=== PATIENT | female | born 2000 | race Caucasian/White ===

== ENCOUNTER 2023-01-17 16:25 | Observation (INO) | payer SELFPAY ==
[2023-01-17 17:37] LABS: Amphetamine Screen, Urine Neg (NEGATIVE); Barbiturate Scree,Urine Neg (NEGATIVE); Benzodiazephine Screen, Urine Neg (NEGATIVE); Cannabinoid Screen, Urine Neg (NEGATIVE); Cocaine Screen, Urine Neg (NEGATIVE); Opiate Scree,Urine Neg (NEGATIVE); Phencyclidine Screen, Urine Neg (NEGATIVE)
[2023-01-17 18:10] LABS: Urine Bacteria FEW /hpf (None Seen); Urine Blood 1+ /uL (Negative); Urine Clarity HAZY (Clear); Urine Color Yellow (Yellow); Urine Mucus FEW (None Seen); Urine Protein, UAD 1+ (Negative); Urine Specific Gravity 1.029 (1.001-1.035); Urine Urobilinogen Normal (Negative); Urine WBC 12 /hpf (0 - 5)
[2023-01-17 18:41] LABS: Basophils # (auto) 0 10 ^3/uL (0-0.2); Basophils % (auto) 0.2 % (0.0-2.0); Eosinophils # (auto) 0.1 10 ^3/uL (0-0.8); Eosinophils % (auto) 0.5 % (0.0-7.0); Hematocrit 32.4 % (36.0-46.0); Hemoglobin 10.5 g/dL (12.2-16.2); Lymphocytes # (auto) 2.6 10 ^3/uL (0.4-5.4); Mean Corpuscular Hemoglobin 26.6 pg (28.0-32.0); Mean Corpuscular Hgb Conc. 32.4 g/dL (32.0-36.0); Monocytes # (auto) 0.9 10 ^3/uL (0-1.3); Monocytes % (auto) 7.1 % (0.0-12.0); Neutrophils # (auto) 8.9 10 ^3/uL (1.6-8.6); Neutrophils % (auto) 71.2 % (37.0-80.0); Nucleated Red Blood Cells % 0.1 %; Red Blood Cells 3.95 10^6/uL (4.0-5.20); Red Cell Distribution Width 14.9 % (11.8-14.3); White Blood Cell 12.5 10^3/uL (4.4-10.8)
[2023-01-17 18:56] LABS: Partial Thromboplastin Time 29.1 SEC (24.5-34.5); Prothrombin Time 10.5 sec (9.3-11.8)
[2023-01-17 19:13] LABS: Alkaline Phosphatase 179 U/L (46-116); Anion Gap 9 (5-15); Aspartate Aminotransferase 14 U/L (13-40); BUN/Creatinine Ratio 11.7 (10.0-20.0); Blood Urea Nitrogen 7 mg/dL (9-23); Calcium 8.9 mg/dL (8.7-10.4); Carbon Dioxide 24 mmol/L (20-30); Chloride 105 mmol/L (98-107); Glucose 83 mg/dL (74-106); Potassium 3.7 mmol/L (3.5-5.1); Sodium 138 mmol/L (136-145); Uric Acid 5.7 mg/dL (3.1-7.8)
[2023-01-17 19:14] LABS: Bilirubin, Total 0.2 mg/dL (0.2-1.0); Total Protein 6.7 g/dL (5.7-8.2)
[2023-01-17 19:17] LABS: Alanine Aminotransferase < 9 U/L (7-40)
[2023-01-20 07:07] LABS: RPR Non Reactive (Non Reactive)
== END 2023-01-17 18:57 | disposition home or self-care (01) ==
LOC: LDRP 16:25
PROVIDERS: ADMIT Nurse Practitioner Women's Health; ATTEND Nurse Practitioner Women's Health
DX: O62.9 Abnormality of forces of labor, unspecified (principal); Z3A.38 38 weeks gestation of pregnancy; Z79.899 Other long term (current) drug therapy
CPT/HCPCS: 36415; 59025; 76805; 80053; 80307; 81001; 81002; 84550; 85025; 85610; 85730; 86592; 86703; 86762; 86850; 86900; 86901; 87081; 87340; 94760; G0378

== ENCOUNTER 2023-01-23 17:40 | Inpatient (IN) | payer SELFPAY ==
[~2023-01-23] VITALS: Ht 167.6 cm; Wt 77.6 kg
[2023-01-23] MEDS ORDERED: ONDANSETRON HCL 4 MG/2 ML VIAL IV PRN (23:00)
[2023-01-24] MEDS ORDERED: LACTATED RINGER'S 1,000 ML IV SCH (00:45)
[2023-01-24] MEDS ORDERED: fentaNYL CITRATE 100 MCG/2 ML VL IV PRN (00:45)
[2023-01-24] MEDS ORDERED: PROMETHAZINE HCL 25 MG/ML 1ML IV PRN (00:45)
[2023-01-24] MEDS ORDERED: WITCH HAZEL-GLYCERIN PAD TOP PRN (00:45)
[2023-01-24] MEDS ORDERED: PHISODERM TOP SOLN 240ML BTL TOP PRN (00:45)
[2023-01-24] MEDS ORDERED: LIDOCAINE 2%HCL (LOCAL ANESTH.) INJ 20ML MDV IJ PRN (00:45)
[2023-01-24] MEDS ORDERED: DERMOPLAST 60ML BOTTLE TOP PRN (00:45)
[2023-01-24] MEDS: LACTATED RINGER'S 1,000 ML IV SCH ×2 (00:56→07:00)
[2023-01-24 01:08] LABS: Basophils # (auto) 0 10 ^3/uL (0-0.2); Eosinophils # (auto) 0 10 ^3/uL (0-0.8); Hematocrit 34.4 % (36.0-46.0); Lymphocytes # (auto) 1.5 10 ^3/uL (0.4-5.4); Lymphocytes % (auto) 8.6 % (10.0-50.0); Mean Corpuscular Hemoglobin 26.6 pg (28.0-32.0); Monocytes # (auto) 0.8 10 ^3/uL (0-1.3)
[2023-01-24 01:10] LABS: Basophils % (auto) 0.1 % (0.0-2.0); Hemoglobin 11.2 g/dL (12.2-16.2); Mean Corpuscular Hgb Conc. 32.4 g/dL (32.0-36.0); Mean Corpuscular Volume 82.2 fL (80.0-100.0); Monocytes % (auto) 4.5 % (0.0-12.0); Neutrophils # (auto) 15.2 10 ^3/uL (1.6-8.6); Neutrophils % (auto) 86.8 % (37.0-80.0); Red Blood Cells 4.19 10^6/uL (4.0-5.20); Red Cell Distribution Width 14.7 % (11.8-14.3); White Blood Cell 17.5 10^3/uL (4.4-10.8)
[2023-01-24 01:12] LABS: Urine Bacteria FEW /hpf (None Seen); Urine Blood 1+ /uL (Negative); Urine Clarity Clear (Clear); Urine Color Yellow (Yellow); Urine Mucus FEW (None Seen); Urine Protein, UAD TRACE (Negative); Urine Specific Gravity 1.016 (1.001-1.035); Urine Urobilinogen Normal (Negative); Urine WBC 14 /hpf (0 - 5)
[2023-01-24 01:20] LABS: Amphetamine Screen, Urine Neg (NEGATIVE); Barbiturate Scree,Urine Neg (NEGATIVE); Benzodiazephine Screen, Urine Neg (NEGATIVE); Cocaine Screen, Urine Neg (NEGATIVE); Opiate Scree,Urine Neg (NEGATIVE)
[2023-01-24 01:21] LABS: Cannabinoid Screen, Urine Neg (NEGATIVE); Phencyclidine Screen, Urine Neg (NEGATIVE)
[2023-01-24 01:23] LABS: INR 1.03 (0.9-1.15); Partial Thromboplastin Time 30.2 SEC (24.5-34.5); Prothrombin Time 10.8 sec (9.3-11.8)
[2023-01-24 01:24] LABS: Alanine Aminotransferase < 9 U/L (7-40); Alkaline Phosphatase 194 U/L (46-116); Anion Gap 10 (5-15); Aspartate Aminotransferase 12 U/L (13-40); BUN/Creatinine Ratio 11.4 (10.0-20.0); Bilirubin, Total 0.4 mg/dL (0.2-1.0); Blood Urea Nitrogen < 5 mg/dL (9-23); Calcium 8.9 mg/dL (8.7-10.4); Carbon Dioxide 21 mmol/L (20-30); Chloride 104 mmol/L (98-107); Glucose 90 mg/dL (74-106); Potassium 3.6 mmol/L (3.5-5.1); Sodium 135 mmol/L (136-145); Total Protein 6.9 g/dL (5.7-8.2)
[2023-01-24] MEDS ORDERED: LACT. RINGERS/OXYTOCIN 20UNITS 500 ML IV ONE ×2 (01:45→02:15)
[2023-01-24] MEDS ORDERED: diphenhdrAMINE HCL 50 MG/1 ML VL IV ONE (08:00)
[2023-01-24] MEDS ORDERED: MINERAL OIL TOPICAL 10ml TOP PRN (08:00)
[2023-01-24] MEDS ORDERED: MINERAL OIL TOPICAL 10ml TOP ONE (08:06)
[2023-01-24] MEDS ORDERED: ONDANSETRON ODT 4 MG TAB PO PRN (08:30)
[2023-01-24] MEDS ORDERED: LACT. RINGERS/OXYTOCIN 20UNITS 1,000 ML IV SCH (09:15)
[2023-01-24] MEDS ORDERED: TERBUTALINE SULFATE 1 MG/ML 1ML VIAL SC PRN (09:15)
[2023-01-24] MEDS ORDERED: METHYLERGONOVINE MALEATE 0.2 MG/ML AMP IM ONE (10:00)
[2023-01-24] MEDS: IBUPROFEN 600 MG TAB PO PRN ×2 (11:18→17:07)
[2023-01-24] MEDS: ceFAZolin 1GM/50ML 50 ML IV SCH ×2 (12:05→19:17)
[2023-01-24 15:00] VITALS: BP 104/52; PULSE 68; RESP 17; TEMP 97.9; O2SAT 96
[2023-01-24 19:04] VITALS: BP 107/52; PULSE 92; RESP 16; TEMP 97.8; O2SAT 96
[2023-01-24] MEDS ORDERED: DOCUSATE SOD 100 MG CAP PO SCH (22:00)
[2023-01-24 23:21] VITALS: BP 106/62; PULSE 85; RESP 16; TEMP 98.2; O2SAT 96
[2023-01-24] MEDS: ACETAMINOPHEN 325 MG TAB PO PRN (23:46)
[2023-01-25 03:06] VITALS: BP 106/55; PULSE 84; RESP 16; TEMP 98.4; O2SAT 96
[2023-01-25] MEDS: IBUPROFEN 600 MG TAB PO PRN (03:11)
[2023-01-25] MEDS: ceFAZolin 1GM/50ML 50 ML IV SCH (03:29)
[2023-01-25] MEDS ORDERED: MEASLES, MUMPS & RUBELLA VAC(MMRII) 0.5ML SC ONE (05:30)
[2023-01-25] MEDS ORDERED: TETANUS-DIPTH-ACEL PERTUSSIS 0.5ML SYR Tdap IM ONE (05:30)
[2023-01-25 07:27] VITALS: BP 111/55; PULSE 88; RESP 16; TEMP 97.7; O2SAT 97
[2023-01-25] MEDS: ACETAMINOPHEN 325 MG TAB PO PRN (07:27)
[2023-01-25 11:01] VITALS: BP 100/57; PULSE 85; RESP 16; TEMP 97.8; O2SAT 96
[2023-01-27 05:07] LABS: RPR Non Reactive (Non Reactive)
[2023-01-28 20:06] LABS: Treponema pallidum Ab (FTA-Ab) Non Reactive (Non Reactive)
== END 2023-01-25 14:03 | disposition home or self-care (01) | DRG 807 ==
LOC: LDRP 17:40 → OBSVTOIN 01-24 00:33 → LDRP 01-24 00:34
PROVIDERS: ADMIT Obstetrics & Gynecology; ATTEND Obstetrics & Gynecology
PROC: 10D07Z6 Extraction of Products of Conception, Vacuum, Via Natural or Artificial Opening (ICD-10-PCS; principal; 2023-01-24)
PROC: 0KQM0ZZ Repair Perineum Muscle, Open Approach (ICD-10-PCS; 2023-01-24)
PROC: 0W8NXZZ Division of Female Perineum, External Approach (ICD-10-PCS; 2023-01-24)
PROC: 3E0234Z Introduction of Serum, Toxoid and Vaccine into Muscle, Percutaneous Approach (ICD-10-PCS; 2023-01-25)
DX: O69.81X0 Labor and delivery complicated by cord around neck, without compression, not applicable or unspecified (principal); Z37.0 Single live birth; O70.1 Second degree perineal laceration during delivery; Z3A.39 39 weeks gestation of pregnancy; Z23 Encounter for immunization
CPT/HCPCS: 36415; 59025; 59409; 76815; 80053; 80307; 81001; 81002; 85025; 85610; 85730; 86592; 86850; 86900; 86901; 90715; 94760; 96360; 96361; 96372; 96374; G0378; J0690; J2405; J2590